=== PATIENT | male | born 1970 | race Caucasian/White ===

== ENCOUNTER 2022-03-30 12:54 | Emergency (ER) | payer SELFPAY ==
[~2022-03-30] VITALS: Ht 188 cm; Wt 102.3 kg
[~2022-03-30 12:54] MED LIST: CIPRO 500MG TA500 MG PO; NO HOME MEDICATIONS; PENICILLIN V500 MG PO; PERCOCET 325 MG1 TA2 PO
[2022-03-30 13:42] VITALS: BP 157/112; PULSE 117; TEMP 97.7
[2022-03-30] MEDS ORDERED: DULCOLAX STOOL100 MG PO (14:09)
[2022-03-30] MEDS ORDERED: ANUSOL-HC SUPPO25 MG RC (14:09)
== END 2022-03-30 14:32 | disposition home or self-care (01) ==
LOC: COL.ER 12:54
DX: K64.4 Residual hemorrhoidal skin tags (principal); F17.210 Nicotine dependence, cigarettes, uncomplicated; Z28.310 Unvaccinated for COVID-19